=== PATIENT | female | born 1985 | race Two or more races ===

== ENCOUNTER 2022-06-30 07:45 | Outpatient (CLI) | payer OTHER | END 2022-06-30 07:59 | disposition home or self-care (01) | LOC: TOM 07:45 | PROVIDERS: ATTEND Otolaryngology | DX: R22.1 Localized swelling, mass and lump, neck (principal) ==

== ENCOUNTER 2022-09-08 09:50 | Outpatient (CLI) | payer OTHER | END 2022-09-08 10:07 | disposition home or self-care (01) | LOC: SONOGRAMA 09:50 | PROVIDERS: ATTEND Otolaryngology | DX: E04.1 Nontoxic single thyroid nodule (principal) ==